=== PATIENT | female | born 1965 | race Caucasian/White ===

== ENCOUNTER 2024-06-08 12:08 | Emergency (ER) | payer OTHER, SELFPAY ==
[2024-06-08 12:09] VITALS: BP 96/80; PULSE 73; RESP 18; TEMP 36.5; O2SAT 99; BMI 23.1
--- NOTE | 2024-06-08 12:33 | ED.VIS.GI ---
HPI HPI - GI History of Present Illness Chief Complaint: Abd Pain Narrative Narrative: 58-year-old female past medical history of coronary artery disease with stenting presents with lower abdominal pain, nausea, and dysuria along with diarrhea that she has had for the last few days. She relates history that around 8 days ago, of last week, she started having multiple episodes of diarrhea. More watery stool. She is nauseated. She denies any fevers or chills. She stayed home from work for a few days, but over the weekend started feeling rundown and tired. She continues to have diarrhea and loose stools. She noticed that her urine was dark today. She complains of bilateral lower abdominal pain. No exacerbating or alleviating factors. Past abdominal surgery does include appendectomy remotely. [facility] Medical History (Updated 06/08/24 @ 13:57 by Michele Lo MD) Congestive heart failure (CHF) Gunner syndrome GERD (gastroesophageal reflux disease) Alexsandra thyroiditis Goiter Myocardial infarct Home Medications ?Medication ?Instructions ?Recorded ?Last Taken ?Type Ranitidine [Zantac] 150 mg PO BID 05/24/17 Unknown History carvedilol 6.25 mg tablet 6.25 mg PO BID 06/08/24 Unknown History levofloxacin 750 mg tablet 750 mg PO DAILY #6 tabs 06/08/24 Unknown Rx levothyroxine 75 mcg tablet 75 mcg PO DAILY 06/08/24 Unknown History (Synthroid) lisinopril 2.5 mg tablet PO 06/08/24 Unknown History phenazopyridine 200 mg tablet 200 mg PO TID 6 doses #6 tabs 06/08/24 Unknown Rx (Pyridium) spironolactone 25 mg tablet 25 mg PO BID 06/08/24 Unknown History Allergy/AdvReac Type Severity Reaction Status Date / Time latex Allergy Rash Verified 06/08/24 12:09 Sulfa (Sulfonamide Allergy Anaphylaxis Verified 06/08/24 12:09 Antibiotics) Surgical History (Updated 06/08/24 @ 13:03 by Meaghan Helms) History of heart artery stent Social History Smoking Status: Former smoker ROS ROS ED ROS Narrative Constitutional: No fever, no chills. HEENT: No sore throat. No neck pain. No loss of vision. No rhinorrhea. Cardiovascular: No chest pain. No palpitations. No pedal edema. Respiratory: No cough, no shortness of breath. Abdominal: Positive bilateral lower quadrant abdominal pain. Positive nausea. No vomiting. Positive diarrhea, multiple episodes over the last week. Genitourinary: Positive dark urine/dysuria. No gross hematuria. Musculoskeletal: No myalgias. No arthralgias. Neurologic: No headaches. No dizziness. No lightheadedness. Skin: No rash. No change in color. Psychiatric: No depression. No anxiety. EXAM Physical Exam Narrative Exam Narrative: Afebrile. Vital signs noted. HEENT: Normocephalic. Atraumatic. PERRL, EOMI. Neck soft and supple. No point tenderness or step off. Cardiovascular: Regular rate and rhythm. No murmurs, rubs, or gallops appreciated. Respiratory: No tachypnea. Lungs clear to auscultation bilaterally. Gastrointestinal: Abdomen soft, positive tenderness palpation bilateral lower quadrants/suprapubic area with normoactive bowel sounds. No rebound or guarding. Neurological: Awake. Alert. Nonfocal, nonlateralizing. Skin: No rash. Normal color. No pallor. Musculoskeletal: No pedal edema. Full range of motion extremities. Const Vital Signs: 06/08/24 12:09 Temperature 97.7 F L Temperature Source Temporal Pulse Rate 73 Respiratory Rate 18 Blood Pressure 96/80 Blood Pressure Mean 85 Pulse Ox 99 Oxygen Delivery Method Room Air MDM MDM MDM Narrative Medical decision making narrative: Differential diagnosis includes but not limited to diverticulitis versus ureterolithiasis versus cystitis versus pyelonephritis. I have low suspicion for ischemic bowel as she does not have pain out of proportion, although she has a soft blood pressure of 96/80. I am concerned about dehydration. She was bolused normal saline 1 L intravenously and administered morphine and ondansetron for analgesia. I do feel CT imaging is indicated to also rule out obstruction as well. I reviewed her laboratory work and she has elevated white count of 13.2, hemoglobin normal at 13.6, hematocrit 41.0 with platelet count normal at 231. Electrolyte panel shows chloride elevated at 108 which I think is nonspecific, glucose 87 with normal anion gap of 5. LFTs are grossly unremarkable. Lipase is normal. I doubt pancreatitis. Urinalysis is positive for greater than 100 WBCs as well as RBCs. She has positive nitrites. As she was having elevated white count, no fever, and pain in the suprapubic area to the bilateral lower quadrants, I will send this for culture. I reviewed the radiology report of the CT of the abdomen pelvis and there is a normal-appearing bladder without stranding, she has diverticulosis but no evidence of infection or obstruction. At this point in time, upon repeat examination she states she is feeling mildly improved but still having pain with urination. As she has an allergy to sulfa antibiotics, I will not give her Bactrim DS, and I explained to her that we would use a celena quinolone such as Levaquin. She was informed of the risk of tendon rupture and acknowledges an understanding, but I do feel this would be the best course of therapy as I am unsure as to the culture results at this time. She was written a prescription for Pyridium as well. I feel she can be discharged to follow-up. She will return with fever, vomiting/inability to take her antibiotics, new or worsening symptoms. Disposition is discharged home in stable condition. History & Record Review Discussion w/independent historian: Patient Lab Data Attestation: I reviewed the patient's lab results. Labs: Laboratory Results - last 24 hr 06/08/24 06/08/24 12:18 12:50 WBC 13.2 H RBC 4.40 Hgb 13.6 Hct 41.0 MCV 93.2 MCH 30.9 MCHC 33.2 RDW Std Deviation 43.5 RDW Coeff of Jorge 12.6 Plt Count 231 MPV 10.5 Immature Gran % (Auto) 0.300 Neut % (Auto) 80.5 H Lymph % (Auto) 11.9 L Deuel % (Auto) 6.1 Eos % (Auto) 0.8 Baso % (Auto) 0.4 Absolute Neuts (auto) 10.6 H Absolute Lymphs (auto) 1.57 Nucleated RBC % 0 Sodium 138 Potassium 4.0 Chloride 108 H Carbon Dioxide 25.0 Anion Gap 5 BUN 11 Creatinine 0.82 Estim Creat Clear Calc 66.47 Est GFR (MDRD) Af Amer 92 Est GFR (MDRD) Non-Af 76 BUN/Creatinine Ratio 13.5 Glucose 87 Lactic Acid 1.7 Calcium 9.1 Total Bilirubin 0.60 AST 17 ALT 25 Alkaline Phosphatase 86 Total Protein 7.3 Albumin 3.6 Globulin 3.7 Albumin/Globulin Ratio 1.0 Lipase 58 Urine Color Brown Urine Clarity Turbid Urine pH 5.0 Ur Specific Chelsea 1.025 Urine Protein 100 H Urine Glucose (UA) Normal Urine Ketones 5 H Urine Occult Blood 250 H Urine Nitrite Positive H Urine Bilirubin Negative Urine Urobilinogen 1 H Ur Leukocyte Esterase 500 H Urine RBC > 100 SEEN Urine WBC >100 SEEN Ur Squamous Epith Cells 0 SEEN Urine Bacteria 0 SEEN Urine Mucus 0 SEEN Radiography Diagnostic Testing: Clinical Impression(s) from Imaging Studies Abdomen/Pelvis CT 06/08/24 13:15 IMPRESSION: Sigmoid diverticulosis. Small hepatic cyst. Left adrenal hyperplasia. Nonobstructive 2.3 mm calculus in the lower pole calyx of the right kidney. Electronically Signed: Ravi Carpio MD at 13:35 EDT , Discharge Plan Triage Chief Complaint: Abd Pain ED Provider: Michele Lo Dx/Rx/DC Orders Clinical Impression: Cystitis, Abdominal pain, Diarrhea Instructions: ED Diarrhea, Unknown Cause, ED Cystitis Female Adult Prescriptions: New levofloxacin 750 mg tablet 750 mg PO DAILY Qty: 6 0RF phenazopyridine [Pyridium] 200 mg tablet 200 mg PO TID Qty: 6 0RF No Action Ranitidine [Zantac] 150 MG tablet 150 mg PO BID carvedilol 6.25 mg tablet 6.25 mg PO BID spironolactone 25 mg tablet 25 mg PO BID levothyroxine [Synthroid] 75 mcg tablet 75 mcg PO DAILY lisinopril 2.5 mg tablet PO Primary Care Provider: Tony Belle Referrals: Tony Belle MD [Primary Care Provider] - 3-5 Days if not improving Activity Restrictions/Additional Instructions: Take all of the antibiotics as directed. Return with fever, inability to take antibiotics, new or worsening symptoms. You are given a prescription for Pyridium. This will turn your urine orange. Print Language: Thai Disposition Disposition: Home, Self Care
[2024-06-08 12:56] LABS: Bacteria 0 SEEN /hpf (None Seen); Mucous, Urine 0 SEEN /hpf (<or=2+); Squamous Epithelial Cells - UA 0 SEEN /hpf (5-10)
[2024-06-08] MEDS: Ondansetron 4 MG/2 ML Vial IV (12:56)
[2024-06-08] MEDS: 0.9% Normal Saline (1000mL) 1,000 ML 999 ML IV (12:56)
[2024-06-08] MEDS: Morphine 4 MG/ML Syringe IV (12:56)
[2024-06-08 13:02] LABS: Absolute Lymphocyte Count 1.57 X10^3/uL (0.83-4.51); Absolute Neutrophil Count 10.6 X10^3/uL (2.0-7.7); Basophil# 0.05 X10^3/uL; Basophil% 0.4 % (0-1); Eosinophil# 0.11 X10^3/uL; Eosinophils% 0.8 % (0-5); Hemoglobin 13.6 g/dL (12.0-15.0); Lymphocyte # 1.57 X10^3/ul (0.83-4.51); Lymphocyte % 11.9 % (19-41); Mean Corp Hgb Conc 33.2 g/dL (32-36); Mean Corpuscular Hgb 30.9 pg (27.0-32.0); Mean Corpuscular Volume 93.2 fL (81-99); Mean Platelet Vol. 10.5 fl (6.2-12.0); Monocyte# 0.81 X10^3/uL; Monocyte% 6.1 % (0-10); NRBC Flagged by Analyzer 0 % (0-5); Neutrophil # 10.63 X10^3/uL (2.7-7.7); Neutrophil % 80.5 % (47-70); Platelet Count 231 K/mm3 (150-450); RBC Distribution Width CV 12.6 % (11.6-14.6); RBC Distribution Width SD 43.5 fl (35.1-43.9); White Blood Count 13.2 K/mm3 (4.4-11.0)
[2024-06-08 13:03] LABS: Color, Urine Brown (Yellow); Glucose, Dipstick Normal (Normal); Ketone-Dipstick 5 mg/dl (Negative); Leukocyte Esterase-Dipstick 500 /ul (Negative); Nitrite-Dipstick Positive (Negative); Occult Blood-Urine 250 /ul (Negative); Protein-Dipstick 100 mg/dl (Negative); Specific Gravity, Urine 1.025 (1.002-1.030); Urine Bilirubin Dipstick Negative (Negative); Urine Clarity Turbid (Clear); Urine Urobilinogen 1 mg/dl (Normal)
--- NOTE | 2024-06-08 13:15 | CT_ITS ---
STUDY: CT ABDOMEN AND PELVIS WITH CONTRAST REASON FOR EXAM: Female, 58 years old. Lower abdominal pain RADIATION DOSAGE (If Supplied By Facility): CTDIvol = ( 13.81 ) mGy, DLP = ( 396.69 ) mGycm TECHNIQUE: Transaxial images were obtained from the dome of the diaphragm to the symphysis pubis without oral contrast. IV 100mL Isovue-300 was administered. Sagittal and coronal images were reconstructed. Individualized dose optimization techniques were used for this CT. COMPARISON: None. FINDINGS: The visualized lung bases are unremarkable. Coronary artery calcification. Pericardial thickening along the right inferior aspect of the pericardium. 1 cm cyst in the medial aspect of the right lobe of the liver superiorly. Normal gallbladder and extrahepatic biliary system. Normal spleen. Normal pancreas. Left adrenal hyperplasia. There is a 2.3 mm nonobstructive calculus in the lower pole calyx of the right kidney. Normal left kidney. Normal visualized stomach. Normal small intestine. There are multiple colonic diverticula consistent with diverticulosis. There are surgical clips in the region of the appendix consistent with a prior appendectomy. There is scattered atherosclerotic calcification of the abdominal aorta, without a demonstrated aneurysm. Normal inferior vena cava. Normal retroperitoneum. Normal urinary bladder. Normal abdominal wall. Normal osseous structures. CT/Abdomen/Pelvis W IV Cont ONLY IMPRESSION: Sigmoid diverticulosis. Small hepatic cyst. Left adrenal hyperplasia. Nonobstructive 2.3 mm calculus in the lower pole calyx of the right kidney. Electronically Signed: Ravi Carpio MD at 13:35 EDT ,
[2024-06-08 13:17] LABS: Red Blood Cells-Urine > 100 SEEN /hpf (0-5); White Blood Cells >100 SEEN /hpf (0-5)
[2024-06-08 13:21] LABS: AST(SGOT) 17 U/L (15-37); Alanine Aminotransfer ALT/SGPT 25 U/L (13-56); Albumin, Serum 3.6 g/dL (3.2-5.0); Alkaline Phosphatase 86 U/L (45-117); Anion Gap 5 (5-15); BUN 11 mg/dL (7-18); BUN/Creat Ratio 13.5 RATIO (10-20); Calcium,Total 9.1 mg/dL (8.5-10.1); Chloride 108 mmol/L (98-107); Creatinine, Serum 0.82 mg/dL (0.55-1.02); EST Glomerular Filtration Rate 76 mL/min (>60); Est Glom Filt Rate - Afr Amer 92 mL/min (>60); Estimated Creatinine Clearance 66.47 ml/min; Globulin 3.7 g/dL (2.2-4.2); Glucose 87 mg/dL (74-106); Lipase 58 U/L (13-75); Protein, Total 7.3 g/dL (6.4-8.2); Sodium Level 138 mmol/L (136-145)
[2024-06-08 13:45] LABS: Lactic Acid 1.7 mmol/L (0.4-1.9)
[2024-06-08] MEDS: levoFLOXacin 750 MG Tablet PO (14:15)
[2024-06-08 14:21] VITALS: BP 98/71; PULSE 69; RESP 16; O2SAT 99
== END 2024-06-08 14:23 | disposition home or self-care (01) ==
PROVIDERS: Emergency Provider Emergency Medicine; PCP Family Medicine; Visit Provider Emergency Medicine
DX: N30.90 Cystitis, unspecified without hematuria (principal); R19.7 Diarrhea, unspecified; I25.10 Atherosclerotic heart disease of native coronary artery without angina pectoris; R11.0 Nausea; Z87.891 Personal history of nicotine dependence; E06.3 Autoimmune thyroiditis; K21.9 Gastro-esophageal reflux disease without esophagitis; R10.9 Unspecified abdominal pain
CPT/HCPCS: 74177; 80053; 81001; 83605; 83690; 85025; 96361; 96374; 96375; 99283; J7030; Q9967; A4216; J2405